=== PATIENT | female | born 1995 | race Caucasian/White ===

== ENCOUNTER 2020-02-19 05:45 | Inpatient (IN) | payer OTHER ==
[~2020-02-19] VITALS: Ht 162.6 cm; Wt 98.0 kg
--- NOTE | ~2020-02-19 | OR ---
[facility] [address] [place], [place] [address] Draft DATE OF OPERATION: 02/19/2020 SURGEON: Margi Hinse MD LOADER OPERATOR SUPERVISOR: Jairo Regalado DO. PREOPERATIVE DIAGNOSES: Term , premature rupture of the membranes, prolonged rupture of the membranes, desired primary section. POSTOPERATIVE DIAGNOSIS: Term , premature rupture of the membranes, prolonged rupture of the membranes, desired primary section, delivered. PROCEDURE: Primary section with low segment transverse uterine incision. ANESTHESIA: Spinal. ESTIMATED BLOOD LOSS: 500 mL. DRAINS: Hobson catheter. INDICATIONS AND FINDINGS: The patient is a 24-year-old female, 1, para 0, admitted at 38 and 3/7th weeks after premature rupture of membranes approximately 20 hours previously. The patient desired primary section secondary to trauma in her past. She was extensively counseled and desired to proceed. At the time of surgery, she was delivered of a little boy via lower segment transverse uterine incision from the LOT position with Apgars of 8 and 9 and weight of 6 pounds 13 ounces. There was a nuchal cord x1, which was loose. The uterus, tubes, ovaries, and placenta appeared normal. DESCRIPTION OF PROCEDURE: The patient was prepped and draped in the supine position. A Pfannenstiel skin incision was made and carried down through the fascia. The incision was extended laterally. The inferior and superior fascial flaps were then created. The muscles were bluntly divided PATIENT NAME: BLIMWOJCIECH PASTRANA OPERATIVE REPORT DATE OF : [birth year] REPORT #: [id number] PHYSICIAN: MARGI HINES MD PCP: MARGI HINES MD REPORT IS CONFIDENTIAL AND NOT TO BE RELEASED WITHOUT AUTHORIZATION [facility] [address] [place], [place] [address] Draft and the peritoneum entered sharply and the incision extended superiorly and inferiorly. The Yuniel retractor was then placed. The uterine incision was made at the upper aspect of the peritoneal reflection. The baby was delivered with the above findings and handed off to the pediatric staff in attendance. The placenta was removed manually. The uterus was explored with a lap tape assuring no remaining fragments. The edges of the incision were identified and the uterus was closed in 2 layers using 0 Monocryl. The first layer was a running locking stitch and the second was a vertical imbricating stitch. Additional sutures were required in the midportion for control of bleeding. Following this, the abdomen was irrigated, inspected, and good hemostasis was noted. The retractor was removed and the peritoneum identified. An ACell graft was laid over the lower segment to aid in healing. The peritoneum was then closed with a running suture of 3-0 Vicryl. The muscles were reapproximated with interrupted sutures of 0 Vicryl. Bleeding points were controlled with cautery. This layer was irrigated and good hemostasis was noted. ACell powder was sprinkled over the muscles to aid in healing. The fascia was then closed from each angle to the midline with a running suture of 0 Vicryl. The subcutaneous tissue was irrigated and bleeding points controlled with cautery. The deep space was closed with interrupted sutures of 3-0 Vicryl. The skin was closed with marino. All sponge and needle counts were correct. She tolerated the procedure well and was taken to the recovery room in good condition. MD DARRELL CamposW/MODL /[id number] cc: Jairo Regalado DO Copies: JAIRO REGALADO DO ~ PATIENT NAME: [facility] OPERATIVE REPORT DATE OF : [birth year] REPORT #: [id number] PHYSICIAN: MARGI HINES MD PCP: MARGI HINES MD REPORT IS CONFIDENTIAL AND NOT TO BE RELEASED WITHOUT AUTHORIZATION
[2020-02-19] MEDS ORDERED: VENTOLIN HFA18 GM INH (07:02)
[2020-02-19] MEDS ORDERED: PRENATAL TABLE1 EAC1 PO (07:03)
--- NOTE | 2020-02-19 09:22 | NUR ---
02/19/20 0922 Tessy Michaels 0905 PATIENT BACK TO ROOM FROM OR FBC RM 104. PATIENT AWAKE RATES PAIN 0/10 ON PAIN SCALE. REPORTS SOME NAUSEA, PROVIDED EMESIS BAG. FUNDUS CHECK WNL. 0910 PATIENT HOLDING BABY. FUNDUS CHECK DONE, NOTED KINK IN TORRES CATH FUNDUS WNL, URINE DRAINING WELL NOW.
--- NOTE | 2020-02-20 08:15 | PR ---
[facility] [address] [facility] [place], [place] [address] Signed PP Progress Notes Datetime Report Generated by CPN: 02/20/2020 08:15 SUBJECTIVE: [id number] Pain: Within normal limits Nausea/Vomiting: Denies Flatus: No Vital Signs: [id number] Vital Signs: Reviewed; Within Normal Limits EXAM: [id number] Cardiovascular: Normal Respiratory: Normal Abdomen/Uterus: Abnormal Lochia: Normal Vulva/Perineum: Not Done Breasts: Not Done CVA Tenderness: Not Done Extremities: Normal Incision: Normal Progress: Not Applicable Exam Comments: Abdomen with active BS. Fundus firm, NT @ U-1. H/H 05/19.9, WBC 8, plat 136k IMPRESSION/PLAN/PROCEDURES: [id number] Impression: Normal progression Other Plans: ambulate, shower Progress Notes: Doing well overall. Signing Physician: Margi Hines MD Copies: ~ *Electronically Signed* 02/20/20814 MARGI HINES MD PATIENT NAME: WOJCIECH LOMBARDOVALERIAStanley PROGRESS NOTE DATE OF : [birth year] PHYSICIAN: MARGI HINES MD RPT #: [id number] REPORT IS CONFIDENTIAL AND NOT TO BE RELEASED WITHOUT AUTHORIZATION
--- NOTE | 2020-02-21 08:16 | PR ---
[facility] [address] [facility] [place], [place] [address] Signed PP Progress Notes Datetime Report Generated by CPN: 02/21/2020 08:16 SUBJECTIVE: [id number] Pain: Within normal limits Nausea/Vomiting: Denies Flatus: Yes Vital Signs: [id number] Vital Signs: Reviewed; Within Normal Limits EXAM: [id number] Cardiovascular: Normal Respiratory: Not Done Abdomen/Uterus: Abnormal Lochia: Normal Vulva/Perineum: Not Done Breasts: Not Done CVA Tenderness: Not Done Extremities: Normal Incision: Normal Progress: Not Applicable Exam Comments: Abdomen with active BS. Fundus firm, NT @ U-1. IMPRESSION/PLAN/PROCEDURES: [id number] Impression: Normal progression Plan: Remove marino; Discharge Other Plans: ambulate, shower Procedures: Rhogam Progress Notes: Doing well. She is ready for D/C. Signing Physician: Margi Hines MD Copies: ~ *Electronically Signed* 02/21/20 08 MARGI HINES MD PATIENT NAME: WOJCIECH LOMBARDOHOLLYBENJAMIN [facility]SeanStan[facility] PROGRESS NOTE DATE OF : [birth year] PHYSICIAN: MARGI HINES MD RPT #: [id number] REPORT IS CONFIDENTIAL AND NOT TO BE RELEASED WITHOUT AUTHORIZATION
== END 2020-02-21 11:23 | disposition home or self-care (01) | DRG 787 ==
LOC: FBCO 05:45 → FBC 06:15
PROVIDERS: ADMIT Obstetrics & Gynecology
PROC: 10D00Z1 Extraction of Products of Conception, Low, Open Approach (ICD-10-PCS; principal; 2020-02-19 07:40)
PROC: 3E0234Z Introduction of Serum, Toxoid and Vaccine into Muscle, Percutaneous Approach (ICD-10-PCS; 2020-02-20)
DX: O42.02 Full-term premature rupture of membranes, onset of labor within 24 hours of rupture (principal); O99.324 Drug use complicating childbirth; O69.81X0 Labor and delivery complicated by cord around neck, without compression, not applicable or unspecified; Z3A.38 38 weeks gestation of pregnancy; Z37.0 Single live birth; O26.893 Other specified pregnancy related conditions, third trimester; O32.2XX0 Maternal care for transverse and oblique lie, not applicable or unspecified; F12.90 Cannabis use, unspecified, uncomplicated; O99.214 Obesity complicating childbirth; E66.9 Obesity, unspecified; Z67.11 Type A blood, Rh negative; Z88.0 Allergy status to penicillin; Z88.8 Allergy status to other drugs, medicaments and biological substances; Z87.891 Personal history of nicotine dependence; Z86.19 Personal history of other infectious and parasitic diseases
CPT/HCPCS: 01961; 36415; 83030; 85027; 86850; 86900; 86901; A9270; J0690; J1885; J2001; J2274; J2405; J2590; J2765; J2790; J3010; J7040; J7121